=== PATIENT | male | born 1945 | race Caucasian/White ===

== ENCOUNTER 2016-06-16 11:19 | Emergency (ER) | payer BC | END 2016-06-16 12:36 | disposition home or self-care (01) | LOC: ED 11:19 | DX: S01.01XA Laceration without foreign body of scalp, initial encounter (principal); V84.4XXA Person injured while boarding or alighting from special agricultural vehicle, initial encounter; W25.XXXA Contact with sharp glass, initial encounter; Y92.9 Unspecified place or not applicable ==